=== PATIENT | male | born 1985 | race Caucasian/White ===

== ENCOUNTER 2017-09-25 13:43 | Emergency (ER) | payer OTHER ==
[~2017-09-25] VITALS: Ht 182.9 cm; Wt 74.8 kg
--- NOTE | 2017-09-25 14:08 | NUR ---
PT TO ED ROOM 11. ABSCESS TO SCALP. A/A/O. AMBULATORY. SIDE RAILS UP. HOB ELEVATED. SEEN AND EVALUATED BY ED PROVIDER.
[2017-09-25] MEDS ORDERED: LIDOCAINE 1% INJ 50 ML MDV IJ ONE (14:30)
[2017-09-25] MEDS ORDERED: LIDOCAINE 1%-EPI 1:100,000 20 ML VIAL ONE (14:30)
--- NOTE | 2017-09-25 15:05 | NUR ---
Patient discharged to home in stable condition. Written and verbal after care instructions given. Patient verbalizes understanding of instruction. ambulatory with a steady gait. Patient's father is driving him back to the facility.
[2017-09-25 15:07] VITALS: BP 133/70
== END 2017-09-25 15:09 | disposition home or self-care (01) ==
LOC: ER 13:48
DX: L02.811 Cutaneous abscess of head [any part, except face] (principal); L72.3 Sebaceous cyst; I12.0 Hypertensive chronic kidney disease with stage 5 chronic kidney disease or end stage renal disease; N18.6 End stage renal disease; E11.22 Type 2 diabetes mellitus with diabetic chronic kidney disease; K21.9 Gastro-esophageal reflux disease without esophagitis; F20.9 Schizophrenia, unspecified; F32.9 Major depressive disorder, single episode, unspecified; E03.9 Hypothyroidism, unspecified; J45.909 Unspecified asthma, uncomplicated; G40.909 Epilepsy, unspecified, not intractable, without status epilepticus; G20 Parkinson's disease; D64.9 Anemia, unspecified; Z99.2 Dependence on renal dialysis
CPT/HCPCS: 10060; 87070; 87077; 99284; A4606; A6402; A6407; J3490; Z7610